=== PATIENT | male | born 1985 | race Caucasian/White ===

== ENCOUNTER 2018-03-17 20:58 | Emergency (ER) | payer SELFPAY ==
[~2018-03-17] VITALS: Ht 170.2 cm; Wt 75.0 kg
[2018-03-18] MEDS ORDERED: IBUPROFEN 800MG TABLET PO ONE (01:00)
[2018-03-18 01:06] VITALS: BP 117/74
== END 2018-03-18 01:25 | disposition home or self-care (01) ==
LOC: ER 20:58
DX: S09.8XXA Other specified injuries of head, initial encounter (principal); V49.9XXA Car occupant (driver) (passenger) injured in unspecified traffic accident, initial encounter; Y93.9 Activity, unspecified; Y92.410 Unspecified street and highway as the place of occurrence of the external cause; R03.0 Elevated blood-pressure reading, without diagnosis of hypertension
CPT/HCPCS: 99282